=== PATIENT | female | born 1980 | race Caucasian/White ===

== ENCOUNTER 2017-01-05 08:58 | Emergency (ER) | payer OTHER ==
[~2017-01-05] VITALS: Ht 177.8 cm; Wt 85.7 kg
[~2017-01-05 08:58] MED LIST: BECL8.7A IH; CYCL10TA2 PO; ESTR2TAB PO; INSU100I17 SQ; INSU100V8 SQ; LEVO100T5 PO; LEVO125T5 PO; LISI1TAB3 PO; LOVA20TA2 PO; NORT25CA PO; OXYC1TAB8 PO
[2017-01-05] MEDS ORDERED: IV NORMAL SALINE 1000ML BAG 1,000 ML IV SCH (09:17)
[2017-01-05 09:22] LABS: BILIRUBIN,URINE SMALL (NEG); GLUCOSE,URINE >=1000 mg/dL (NEG); NITRITE,URINE NEGATIVE (NEG); PH,URINE 5.5; PROTEIN,URINE NEGATIVE (NEG-TRACE); UROBILINOGEN,URINE 0.2 mg/dL (0.2 mg/dL)
--- NOTE | 2017-01-05 09:24 | PHYS DOC ---
Past Medical History Past Medical History: Diabetes-Type I, Hypertension, Hypothyroid, Kidney Stone , Renal Failure, Other Additional Past Medical Histor: NEUROPATHY Past Surgical History: Hysterectomy Alcohol Use: None Drug Use: None Adult General Chief Complaint Chief Complaint: FLANK PAIN HPI HPI This is a 36-year-old female who is a known diabetic and states she's been having significant right flank pain as well as nausea that is worse over the last several days. Patient additionally states she has a seizure disorder and is on benzodiazepines for this and is in the process of getting an EEG done but has not yet had one done. She states this feels similar to a previous kidney infection that she's had before. She states she always has blood in her urine. She additionally states she's had kidney stones in the past but states this episode feels different. She does have burning with urination for the last day. Patient takes oxycodone 10-325 mg for her back pain but this has not helped her symptoms. She additionally states she has morphine and penicillin allergy. She denies any chest pain or SOB. Review of Systems Review of Systems Constitutional: Denies fever or chills [] Eyes: Denies change in visual acuity, redness, or eye pain [] HENT: Denies nasal congestion or sore throat [] Respiratory: Denies cough or shortness of breath [] Cardiovascular: No additional information not addressed in HPI [] GI: Denies abdominal pain, has nausea, has vomiting, bloody stools or diarrhea [ ] : Has dysuria, has hematuria [] Musculoskeletal: Denies back pain or joint pain [] Integument: Denies rash or skin lesions [] Neurologic: Denies headache, focal weakness or sensory changes [] Endocrine: Denies polyuria or polydipsia [] Current Medications Current Medications Current Medications Medications (Trade) Dose Ordered Sig/Micheal Start Time Stop Time Status Last Admin Dose Admin Fentanyl Citrate (Fentanyl 2ml Vial) 50 mcg 1X ONCE 01/05/17 09:30 01/05/17 09:31 DC 01/05/17 09:52 50 MCG Ondansetron HCl (Zofran) 4 mg 1X ONCE 01/05/17 09:30 01/05/17 09:31 DC 01/05/17 09:52 4 MG Potassium Chloride (Klor-Con) 40 meq 1X ONCE 01/05/17 10:15 01/05/17 10:16 DC 01/05/17 10:36 40 MEQ Sodium Chloride (Iv Sodium Chloride 0.9% 1000ml Bag) 1,000 ml @ 1,000 mls/hr Q1H 01/05/17 09:17 01/05/17 10:16 DC 01/05/17 09:52 1,000 MLS/HR Allergies Allergies Allergies Coded Allergies Type Severity Reaction Last Updated Verified Penicillins Allergy Intermediate 05/24/14 No erythromycin base Allergy Intermediate 05/24/14 No morphine Allergy Intermediate 05/24/14 No Physical Exam Physical Exam Constitutional: Well developed, well nourished, no acute distress, non-toxic appearance. [] HENT: Normocephalic, atraumatic, bilateral external ears normal, oropharynx moist, no oral exudates, nose normal. [] Eyes: PERRLA, EOMI, conjunctiva normal, no discharge. [] Neck: Normal range of motion, no tenderness, supple, no stridor. [] Cardiovascular:Heart rate regular rhythm, no murmur [] Lungs & Thorax: Bilateral breath sounds clear to auscultation [] Abdomen: Bowel sounds normal, soft, no tenderness, no masses, no pulsatile masses. [] Skin: Warm, dry, no erythema, no rash. [] Back: Lumbar tenderness, right CVA tenderness. [] Extremities: No tenderness, no cyanosis, no clubbing, ROM intact, no edema. [] Neurologic: Alert and oriented X 3, normal motor function, normal sensory function, no focal deficits noted. [] Psychologic: Affect normal, judgement normal, mood normal. [] Current Patient Data Vital Signs Vital Signs Date Time Temp Pulse Resp B/P Pulse Ox O2 Delivery O2 Flow Rate FiO2 01/05/17 11:02 75 18 112/64 98 Room Air 01/05/17 09:00 98.1 98.1 Lab Values Laboratory Tests Test 01/05/17 09:02 01/05/17 09:25 Urine Color Viktoria Urine Clarity Clear Urine pH 5.5 Urine Specific [place] >=1.030 Urine Protein Negativemg/dL (NEG-TRACE) Urine Glucose (UA) >=1000mg/dL (NEG) Urine Ketones (Stick) Tracemg/dL (NEG) Urine Blood Small (NEG) Urine Nitrite Negative (NEG) Urine Bilirubin Small (NEG) Urine Urobilinogen Dipstick 0.2mg/dL (0.2 mg/dL) Urine Leukocyte Esterase Negative (NEG) Urine RBC 1-2/HPF (0-2) Urine WBC 0/HPF (0-4) Urine Squamous Epithelial Cells Occ/LPF Urine Bacteria Few/HPF (0-FEW) Urine Mucus Slight/LPF White Blood Count 15.8x10^3/uL (4.0-11.0) H Red Blood Count 4.97x10^6/uL (3.50-5.40) Hemoglobin 15.3g/dL (12.0-15.5) Hematocrit 44.3% (36.0-47.0) Mean Corpuscular Volume 89fL (79-100) Mean Corpuscular Hemoglobin 31pg (25-35) Mean Corpuscular Hemoglobin Concent 35g/dL (31-37) Red Cell Distribution Width 12.7% (11.5-14.5) Platelet Count 403x10^3/uL (140-400) H Neutrophils (%) (Auto) 61% (31-73) Lymphocytes (%) (Auto) 31% (24-48) Monocytes (%) (Auto) 5% (0-9) Eosinophils (%) (Auto) 2% (0-3) Basophils (%) (Auto) 1% (0-3) Neutrophils # (Auto) 9.7x10^3uL (1.8-7.7) H Lymphocytes # (Auto) 4.9x10^3/uL (1.0-4.8) H Monocytes # (Auto) 0.8x10^3/uL (0.0-1.1) Eosinophils # (Auto) 0.2x10^3/uL (0.0-0.7) Basophils # (Auto) 0.1x10^3/uL (0.0-0.2) Sodium Level 139mmol/L (136-145) Potassium Level 3.0mmol/L (3.5-5.1) L Chloride Level 100mmol/L (98-107) Carbon Dioxide Level 26mmol/L (21-32) Anion Gap 13 (6-14) Blood Urea Nitrogen 10mg/dL (7-20) Creatinine 0.7mg/dL (0.6-1.0) Estimated GFR (Cockcroft-Gault) 94.2 Glucose Level 306mg/dL (70-99) H Calcium Level 9.2mg/dL (8.5-10.1) Laboratory Tests 01/05/17 09:25 Laboratory Tests 01/05/17 09:25 EKG EKG [] Radiology/Procedures Radiology/Procedures CT of the abdomen/pelvis without contrast demonstrates the following: Indication right flank pain. Axial images of the abdomen and pelvis were obtained. The examination was tailored for the detection of renal and/or ureteral calculi. No IV or gastrointestinal contrast was administered. Note is made of a previous examination 05/24/2014. The lung bases are clear. The liver and spleen appear unremarkable. Clips are noted in the gallbladder fossa. No pancreatic abnormality is seen. There are no adrenal masses. The kidneys appear unremarkable. There are no renal calculi seen on either side. There is no hydronephrosis hydroureter or calcification seen along the course of either ureter. An acute finding in the abdomen is not seen. In the pelvis changes compatible with previous appendectomy are noted in the right lower quadrant. No acute finding in the pelvis is seen. IMPRESSION: No acute finding seen in the abdomen or pelvis Course & Med Decision Making Course & Med Decision Making Pertinent Labs and Imaging studies reviewed. (See chart for details) This 36-year-old female who's having significant right flank pain with some dysuria type symptoms will have IV and lab work drawn. Her blood glucose levels have been elevated and so she'll be given a fluid bolus and pain control. A CT of her abdomen and pelvis without contrast will also be obtained to rule out any other acute cause for her symptoms. Her laboratory workup is essentially unremarkable sides a hypokalemia of 3.0 that was replaced. Her urinalysis did not reveal any signs of infection. A CT of her abdomen and pelvis without contrast was also unrevealing. At this time I do not see an infectious etiology for her symptoms and will not be prescribing any antibiotic therapy. I will continue to have the patient take her oxycodone and also be prescribing 800 mg of ibuprofen every 6 hours as well as Zofran so that she can stay hydrated. I also counseled her to follow closely for her uncontrolled blood glucose and she stated she will do that. I gave her strict instruction return if she develops any worsening of her nausea and vomiting. She was discharged without incident. Her pain was well-controlled in the department. Alfonsoon Disclaimer Dragon Disclaimer This electronic medical record was generated, in whole or in part, using a voice recognition dictation system. Departure Departure Impression: Primary Impression: Flank pain Additional Impression: Hyperglycemia Disposition: 01 HOME, SELF-CARE Admitting Physician: Other Condition: STABLE Referrals: JESSICA QUINTANA MD (PCP) Patient Instructions: Hyperglycemia, [id number] Additional Instructions: Please follow up with your primary doctor in the next 2-3 days for your flank pain and elevated blood glucose. Take your medication as prescribed. Return to the ER if you develop any worsening of your symptoms. Scripts Ondansetron Hcl (Zofran)4 Mg Tablet4 Mg PO BID PRN NAUSEA/VOMITING #14 TAB Prov:HIRO HURLEY DO 01/05/17 Ibuprofen 800 Mg [id number] Mg PO PRN Q6HRS PRN INFLAMMATION #20 TAB Prov:HIRO HURLEY DO 01/05/17 Problem Qualifiers HIRO HURLEY DO Jan 05, 2017 09:24
[2017-01-05] MEDS ORDERED: FENTANYL PF 100 MCG/2 ML VIAL. IV ONE (09:30)
[2017-01-05] MEDS ORDERED: ONDANSETRON PF 4 MG/2 ML VIAL. IV ONE (09:30)
[2017-01-05 09:33] LABS: BACTERIA,URINE FEW /HPF (0-FEW); SQUAMOUS EPITHELIAL CELL,UR OCC /LPF; WBC,URINE 0 /HPF (0-4)
[2017-01-05 09:37] LABS: BASO # 0.1 x10^3/uL (0.0-0.2); BASO % 1 % (0-3); EOS % 2 % (0-3); HEMATOCRIT 44.3 % (36.0-47.0); HEMOGLOBIN 15.3 g/dL (12.0-15.5); LYMPH # 4.9 x10^3/uL (1.0-4.8); LYMPH % 31 % (24-48); MEAN CORPUSCULAR HEMOGLOBIN 31 pg (25-35); MEAN CORPUSCULAR HGB CONC 35 g/dL (31-37); MEAN CORPUSCULAR VOLUME 89 fL (79-100); MONO % 5 % (0-9); NEUT % 61 % (31-73); PLATELET COUNT 403 x10^3/uL (140-400); RED BLOOD COUNT 4.97 x10^6/uL (3.50-5.40); RED CELL DISTRIBUTION WIDTH 12.7 % (11.5-14.5); WHITE BLOOD COUNT 15.8 x10^3/uL (4.0-11.0)
[2017-01-05 09:45] LABS: CALCIUM 9.2 mg/dL (8.5-10.1); CREATININE 0.7 mg/dL (0.6-1.0); GFR 94.2
--- NOTE | 2017-01-05 10:06 | RAD ---
Indication right flank pain. Axial images of the abdomen and pelvis were obtained. The examination was tailored for the detection of renal and/or ureteral calculi. No IV or gastrointestinal contrast was administered. Note is made of a previous examination 05/24/2014. The lung bases are clear. The liver and spleen appear unremarkable. Clips are noted in the gallbladder fossa. No pancreatic abnormality is seen. There are no adrenal masses. The kidneys appear unremarkable. There are no renal calculi seen on either side. There is no hydronephrosis hydroureter or calcification seen along the course of either ureter. An acute finding in the abdomen is not seen. In the pelvis changes compatible with previous appendectomy are noted in the right lower quadrant. No acute finding in the pelvis is seen. IMPRESSION: No acute finding seen in the abdomen or pelvis PQRS Compliance Statement: One or more of the following individualized dose reduction techniques were utilized for this examination: 1. Automated exposure control 2. Adjustment of the mA and/or kV according to patient size 3. Use of iterative reconstruction technique
[2017-01-05] MEDS ORDERED: POTASSIUM CHLORIDE 20 MEQ TABLET.ER. PO ONE (10:15)
[2017-01-05] MEDS ORDERED: IBUP-1060 PO (10:55)
[2017-01-05] MEDS ORDERED: ONDA4TAB7 PO (10:55)
[2017-01-05 11:02] VITALS: BP 112/64
== END 2017-01-05 11:06 | disposition home or self-care (01) ==
LOC: ER 08:58
DX: R10.9 Unspecified abdominal pain (principal); E10.65 Type 1 diabetes mellitus with hyperglycemia; I10 Essential (primary) hypertension; E78.00 Pure hypercholesterolemia, unspecified; E10.40 Type 1 diabetes mellitus with diabetic neuropathy, unspecified; G40.909 Epilepsy, unspecified, not intractable, without status epilepticus; Z90.710 Acquired absence of both cervix and uterus; Z88.0 Allergy status to penicillin; Z79.4 Long term (current) use of insulin; Z88.1 Allergy status to other antibiotic agents; Z88.5 Allergy status to narcotic agent
CPT/HCPCS: 36415; 74176; 80048; 81001; 85027; 96361; 96374; 96375; 99285; J2405; J3010; J7030

== ENCOUNTER → 2021-04-07 | Outpatient (CLI) | payer OTHER ==
[~2021-04-07] MED LIST changes: -BECL8.7A IH; +BECL8.7A7 IH; +IBUP-1060 PO; +LISI1TAB23 PO; -LISI1TAB3 PO; +ONDA4TAB7 PO
--- NOTE | 2021-04-07 11:52 | RAD ---
XR LUMBAR SPINE 2-3V Clinical Indication: Reason: LOW BACK PAIN. / Spl. Instructions: / History: Comparison: CT abdomen and pelvis without contrast, January 05, 2017. Findings: Question transitional lumbosacral anatomy. There are right pelvis surgical clips. Cholecystectomy cli ps. There is disc space narrowing and reactive endplate changes of L4/L5. There is no loss of vertebr al body height. Mild degenerative endplate spurring. No acute fracture. There is no spondylolisthesis . IMPRESSION: No acute fracture or malalignment. Electronically signed by: Trey Sullivan MD (04/07/2021 11:49 AM) [facility]
== END ==
LOC: RAD 08:34
PROVIDERS: ATTEND Anesthesiology Pain Medicine
DX: M48.061 Spinal stenosis, lumbar region without neurogenic claudication (principal); Z02.71 Encounter for disability determination
CPT/HCPCS: 72100

== ENCOUNTER 2021-07-06 15:15 | Emergency (ER) | payer OTHER | END 2021-07-06 19:16 | disposition left against medical advice (07) | LOC: ER 15:15 | DX: R22.0 Localized swelling, mass and lump, head (principal); Z53.21 Procedure and treatment not carried out due to patient leaving prior to being seen by health care provider ==